=== PATIENT | female | born 1965 | race Caucasian/White ===

== ENCOUNTER 2019-08-16 22:45 | Emergency (ER) | payer BC ==
[2019-08-16 22:59] VITALS: BP 133/76; PULSE 76
[2019-08-16] MEDS: Aspirin 81 MG Tab.Chew ONE (23:01)
[2019-08-16] MEDS: Heparin Sodium 5,000 Units/ML Vial IVPUSH ONE (23:21)
--- NOTE | 2019-08-16 23:28 | EDM.PDOC ---
ED HPI GENERAL MEDICAL PROBLEM - General Chief Complaint: Chest Pain Stated Complaint: Chest Pain Time Seen by Provider: 08/16/19 22:49 Source of Information: Reports: Patient, Family ( and son here) History Limitations: Reports: No Limitations - History of Present Illness INITIAL COMMENTS - FREE TEXT/NARRATIVE: Patient presents with pain and tightness in her chest that started at 2100 this evening. She says it is across the mid-chest and feels like a heavy weight is sitting there. The pain comes and goes. She doesn't smoke but is borderline diabetic and has high cholesterol (medicated). She denies any history of heart problems. Denies diaphoresis or pain in arm, shoulder or neck. - Related Data Allergies Allergy/AdvReac Type Severity Reaction Status Date / Time aspirin Allergy Bleeding Verified 06/29/16 08:47 Home Meds: Home Meds Cholecalciferol (Vitamin D3) [D-2000] 2,000 unit PO DAILY 06/10/16 [History] Cyanocobalamin (Vitamin B-12) [B-12] 1,000 mcg PO DAILY 06/10/16 [History] Fish Oil/[place]-3 Fatty Acids [Fish Oil] 1 each PO DAILY 06/10/16 [History] Simvastatin 80 mg PO BEDTIME 06/10/16 [History] buPROPion HCl [Forfivo Xl] 450 mg PO DAILY 06/10/16 [History] Past Medical History HEENT History: Reports: None Cardiovascular History: Reports: Heart Murmur, High Cholesterol Other Respiratory History: SNORES Gastrointestinal History: Reports: None, Hemorrhoids Other Genitourinary History: MIXED INCONTINENCE Other SVP [employer] History: SYMPTOMATIC MENOPAUSAL OR FEMALE CLIMACTERIC STATES Musculoskeletal History: Reports: Other (See Below) Other Musculoskeletal History: rt painful shoulder Neurological History: Reports: None Psychiatric History: Reports: Depression Other Psychiatric History: HIGH RISK MED USE. HYPERSOMNOLENCE Other Endocrine/Metabolic History: GOITER Other Hematologic History: VITAMIN D DEFICIENCY. 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 Denies: Lightheadedness, Syncope Endocrine: Reports: Other (borderline diabetes) GI/Abdominal: Denies: Abdominal Pain, Nausea, Vomiting : Reports: No Symptoms Musculoskeletal: Denies: Neck Pain, Shoulder Pain, Arm Pain, Back Pain Skin: Denies: Cyanosis, Jaundice, Mottled, Pallor, Diaphoresis Neurological: Denies: Confusion, Dizziness, Headache, Seizure, Syncope, Trouble Speaking, Difficulty Walking, Weakness Psychiatric: Denies: Agitation, Anxiety, Confusion ED EXAM, GENERAL - Physical Exam Exam: See Below Exam Limited By: No Limitations General Appearance: Alert, WD/WN, No Apparent Distress Eye Exam: Bilateral Eye: EOMI, Normal Inspection, PERRL Ears: Normal External Exam, Hearing Grossly Normal Nose: Normal Inspection, No Blood Throat/Mouth: Normal Inspection, Normal Lips, Normal Voice, No Airway Compromise Head: Atraumatic, Normocephalic Neck: Normal Inspection, Full Range of Motion Respiratory/Chest: No Respiratory Distress, Lungs Clear, Normal Breath Sounds, No Accessory Muscle Use Cardiovascular: Regular Rate, Rhythm, No Murmur Extremities: Normal Range of Motion Neurological: Alert, Oriented, Normal Cognition, No Motor/Sensory Deficits Psychiatric: Normal Affect, Normal Mood Skin Exam: Warm, Dry, Intact, Normal Color Course - Vital Signs Last Recorded V/S: Last Vital Signs Temp 96.7 F 08/16/19 22:55 Pulse 76 08/16/19 22:55 Resp 18 08/16/19 22:55 BP 133/76 08/16/19 22:55 Pulse Ox 95 08/16/19 22:55 - Orders/Labs/Meds Labs: Laboratory Tests 08/16/19 08/16/19 08/16/19 Range/Units 23:25 23:25 23:25 WBC 8.28 (5.00-10.00) 10^3/uL RBC 4.44 (3.80-5.50) 10^6/uL Hgb 13.9 (12.0-16.0) g/dL Hct 39.9 (37.0-47.0) % MCV 89.9 (82.0-92.0) fL MCH 31.3 H (27.0-31.0) pg MCHC 34.8 (32.0-36.0) g/dL RDW 12.9 (11.5-14.5) % Plt Count 216 (150-400) 10^3/uL MPV 11.2 H (7.4-10.4) fL Immature Gran % (Auto) 0.1 (0.0-5.0) % Neut % (Auto) 60.6 (50.0-70.0) % Lymph % (Auto) 27.7 (20.0-40.0) % [place] % (Auto) 6.8 (2.0-8.0) % Eos % (Auto) 4.6 H (1.0-3.0) % Baso % (Auto) 0.2 (0.0-1.0) % Immature Gran # (Auto) 0.01 (0.00-0.50) 10^3/uL Neut # (Auto) 5.02 (2.50-7.00) 10^3/uL Lymph # (Auto) 2.29 (1.00-4.00) 10^3/uL [place] # (Auto) 0.56 (0.10-0.80) 10^3/uL Eos # (Auto) 0.38 H (0.10-0.30) 10^3/uL Baso # (Auto) 0.02 (0.00-0.10) 10^3/uL Sodium 142 (136-145) mmol/L Potassium 4.4 (3.3-5.3) mmol/L Chloride 103 (98-115) mmol/L Carbon Dioxide 27.2 (21.0-32.0) mmol/L Anion Gap 16.2 H (5-15) mmol/L BUN 10 (6-25) mg/dL Creatinine 0.69 (0.51-1.17) mg/dL Est Cr Clr Drug Dosing TNP Estimated GFR (MDRD) > 60 mL/min Glucose 124 H (75 - 99) mg/dL Calcium 9.1 (8.7-10.3) mg/dL Troponin I 0.07 (0.00-0.070) ng/mL Meds: Medications Discontinued Medications Generic Name Dose Route Start Last Admin Trade Name Freq PRN Reason Stop Dose Admin Aspirin Confirm 08/16/19 22:54 08/16/19 23:01 Aspirin Administered 08/16/19 22:55 324 mg Dose Administration 324 mg .ROUTE .STK-MED ONE Heparin Sodium (Porcine) 5,000 units 08/16/19 22:58 08/16/19 23:21 Heparin Sodium IVPUSH 08/16/19 22:59 5,000 units ONETIME ONE Administration Ticagrelor 180 mg 08/16/19 23:04 Brilinta PO 08/16/19 23:05 ONETIME ONE - Re-Assessments/Exams Free Text/Narrative Re-Assessment/Exam: 08/16/19 23:58 EKG shows STEMI in anterior leads. We gave aspirin 81x4 and patient says right now the pain is gone so no nitro was given. I called [facility] and Dr. Moe accepted for STEMI treatment. He wanted Brilinta 180 mg along with the Heparin and aspirin we are giving. Discussed findings and treatment plan with patient and her . They are agreeable with the plan. Patient discharged via ALS transfer in stable condition and will continue the medications en route. Departure - Departure Time of Disposition: 23:23 Disposition: DC/Tfer to Acute Hospital 02 Reason for Transfer *Q: Primary PCI Indicated Condition: Good Clinical Impression: STEMI (ST elevation myocardial infarction) Qualifiers: Involved coronary artery: unspecified coronary artery Qualified Code(s): I21.3 - ST elevation (STEMI) myocardial infarction of unspecified site Forms: ED Department Discharge Sepsis Event Note - Evaluation Sepsis Screening Result: No Definite Risk - Focused Exam Vital Signs: Vital Signs Temp Pulse Resp BP Pulse Ox 08/16/19 22:55 96.7 F 76 18 133/76 95 Date Exam was Performed: 08/17/19 Time Exam was Performed: 00:06
[2019-08-16 23:56] LABS: ANION GAP 16.2 mmol/L (5-15); CHLORIDE,CL 103 mmol/L (98-115); SODIUM,NA 142 mmol/L (136-145)
[2019-08-17] MEDS: Aspirin 81 MG Tab.Chew PO ONE (10:08)
[2019-08-17] MEDS: Ticagrelor 90 MG Tab PO ONE (10:09)
== END 2019-08-16 23:25 ==
LOC: KA.ED 22:45
DX: I21.09 ST elevation (STEMI) myocardial infarction involving other coronary artery of anterior wall (principal); E78.00 Pure hypercholesterolemia, unspecified; F32.9 Major depressive disorder, single episode, unspecified; E55.9 Vitamin D deficiency, unspecified; Z79.899 Other long term (current) drug therapy; Z88.6 Allergy status to analgesic agent
CPT/HCPCS: 36415; 80048; 84484; 85025; 93005; 96374; 99285; A9270; J1644